=== PATIENT | female | born 1960 | race Two or more races ===

== ENCOUNTER 2017-04-19 18:33 | Emergency (ER) | payer BC, MEDICAID ==
[~2017-04-19] VITALS: Ht 162.6 cm; Wt 68.4 kg
[~2017-04-19 18:33] MED LIST: LEVO112T2; METO25TA91
[2017-04-19] MEDS ORDERED: OMNIPAQUE 350 MG/ML, 100ML BOTTLE ONE (19:28)
[2017-04-19] MEDS ORDERED: SODIUM CHLORIDE 0.9%, 500ML IVBOLUS ONE (19:30)
[2017-04-19] MEDS ORDERED: MORPHINE SULFATE 4 MG/ML, 1ML IVPush PRN (19:30)
[2017-04-19] MEDS ORDERED: SODIUM CHLORIDE FLUSH 10ML SYR IVF ONE (19:30)
[2017-04-19] MEDS ORDERED: ONDANSETRON 2MG/ML, 2ML IVPush ONE (19:30)
[2017-04-19 19:57] LABS: BLOOD UREA NITROGEN 10 mg/dL (7-18)
[2017-04-19] MEDS ORDERED: MORPHINE SULFATE 4 MG/ML, 1ML ONE (19:58)
[2017-04-19] MEDS ORDERED: ONDANSETRON 2MG/ML, 2ML ONE (19:58)
[2017-04-19 20:01] LABS: ASPARTATE AMINO TRANSFERASE 22 U/L (15-37)
[2017-04-19 22:39] VITALS: BP 138/86
== END 2017-04-19 23:25 | disposition home or self-care (01) ==
LOC: ED 23:15
DX: R19.09 Other intra-abdominal and pelvic swelling, mass and lump (principal); I10 Essential (primary) hypertension; Z90.710 Acquired absence of both cervix and uterus
CPT/HCPCS: 36415; 74177; 76856; 80053; 81003; 83690; 85025; 85610; 85730; 96361; 96374; 96375; 99285; J2405; J7040; Q9967